=== PATIENT | female | born 1930 | race African-American/Black ===

== ENCOUNTER 2017-06-06 14:22 | Outpatient (CLI) | payer MEDICARE ==
--- NOTE | 2017-06-06 17:52 | RAD ---
THREE VIEWS CERVICAL SPINE: 06/06/17 HISTORY: Patient with odontoid fracture. AP, lateral and open mouth odontoid views cervical spine is obtained. There is mild anterolisthesis of C7 on T1. 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 The odontoid in th e upper margins may be mildly anteriorly displaced. Unfortunately, I do not have access to previous c omparison radiographs. IMPRESSION: Findings compatible with an odontoid fracture, difficult to visualize on plain film radiographs due t o the patient's severe osteoporosis. POS: REGI
== END 2017-06-06 14:23 | disposition home or self-care (01) ==
LOC: TBSIIMAG 14:22
PROVIDERS: ATTEND Neurological Surgery
DX: S12.000D Unspecified displaced fracture of first cervical vertebra, subsequent encounter for fracture with routine healing (principal)
CPT/HCPCS: 72040